=== PATIENT | female | born 1965 | race Caucasian/White ===

== ENCOUNTER → 2020-01-12 | Outpatient (CLI) | payer MEDICAID ==
--- NOTE | 2020-01-15 00:56 | ECWPNPC ---
PATIENT NAME: BHAVNA MCCONNELL : 1965 GENDER: FEMALE VISIT DATE: 01/12/2020 DISCHARGE DATE: 01/12/20 1616 VISIT LOCKED DATE TIME: PHYSICIAN: ARNIE GRAY MD RESOURCE: ARNIE GRAY MD REASON FOR APPOINTMENT 1. LOW BACK PAIN HISTORY OF PRESENT ILLNESS DEPRESSION SCREENING: PHQ-2 (2015 EDITION) LITTLE INTEREST OR PLEASURE IN DOING THINGS?NOT AT ALL FEELING DOWN, DEPRESSED, OR HOPELESS?NOT AT ALL TOTAL SCORE0 29 YEAR OLD FEMALE PATIENT WITH A HISTORY OF CHRONIC LOW BACK AND LEG PAIN. THE PATIENT DESCRIBES HER PAIN ACHING, INTERMITTENT, SHARP, TENDER, THROBBING, SORE, SHOOTING WITH A PAIN SCORE OF 8-10/10 DEPENDING ON PHYSICAL ACTIVITY. THE PATIENT STATES HER PAIN BEGINS IN HER LOW BACK AND RADIATES DOWN THE BACK OF BOTH LEGS TO BOTH ANKLES. THE PATIENT SAYS HER PAIN STARTED TWO YEARS AGO WHEN SHE FELL ON ICY GROUND. THE PATIENT MENTIONS SHE ALSO HAS PAIN FROM KIDNEY STONES. THE PATIENT DENIES UNEXPLAINED WEIGHT LOSS, FEVER, CHILLS, NEW CHANGES IN HER URINARY OR BOWEL CONTROL. GENERAL: - -. FALL RISK SCREENING: SCREENING :TWO OR MORE FALLS WITHOUT INJURY IN THE PAST YEAR PT DID NOT REPORT TO ED, NO INJURY PAIN SCREENING: PATIENT HAS A COMPLAINT OF ACUTE OR CHRONIC PAIN :YES LOCATION OF PAIN:LOW BACK INTENSITY OF PAIN (SCALE OF 1 TO 10):10 WHAT DOES YOUR PAIN FEEL LIKE:ACHING, INTERMITTENT, SHARP, TENDER, THROBBING, SORE, SHOOTING DURATION:MAINLY DURING THE NIGHT PAIN IS INREASED BY: LIFTING, BENDING PAIN IS DECREASED BY: MEDS TREATMENT/MEDICATIONS USED TO MANAGE PAIN:OTC PAIN RELIEVERS NURSING NOTE: - -. PAIN CENTER INTAKE QUESTIONS: DO YOU HAVE A HISTORY OF MRSA? :NO DO YOU TAKE A BLOOD THINNERS? :NO DO YOU HAVE ANY BLEEDING DISORDERS? :NO ANY NEW NUMBNESS OR WEAKNESS IN YOUR LEGS OR ARMS? :NO ANY PACEMAKER,DEFIBRILLATOR, OR DORSAL COLUMN STIMULATOR? :NO DO YOU HAVE ANY RASHES OR OPEN SORES? :YES PT STATES SHE HAS A RASH ON HER ABDOMEN ARE YOU ALLERGIC TO IV DYE? :NO ARE YOU DIABETIC? :YES MANAGED WITH ORAL MEDICATIONS ANY NEW PROBLEMS WITH YOUR MEDICATIONS? :NO HAVE YOU RECEIVED A VACCINE IN THE PAST 30 DAYS? :NO DO YOU PLAN TO RECEIVE A VACCINE IN THE NEXT 21 DAYS? :NO DO YOU NEED ANY PRESCRIPTION? :NO DO YOU TAKE ANY IMMUNOSUPPRESSIVE MEDICATIONS? :NO CURRENT MEDICATIONS TAKING LEVOTHYROXINE SODIUM 50 MCG TABLET 1 TABLET ORALLY ONCE A DAY TAKING PROVENTIL HFA 108 (90 BASE) MCG/ACT AEROSOL SOLUTION 2 PUFFS NEEDED INHALATION EVERY 4 HRS TAKING LIPITOR 10 MG TABLET 1 TABLET ORALLY ONCE A DAY TAKING CETIRIZINE HCL 10 MG TABLET 1 TABLET NEEDED ORALLY ONCE A DAY TAKING ZETIA 10 MG TABLET 1 TABLET ORALLY ONCE A DAY TAKING TRILIPIX 45 MG CAPSULE DELAYED RELEASE 1 CAPSULE ORALLY ONCE A DAY TAKING METFORMIN HCL 500 MG TABLET 1 TABLET WITH MEALS ORALLY TWICE A DAY TAKING BLOOD GLUCOSE TEST STRIP TAKING CELEBREX 200 MG CAPSULE 1 CAPSULE ORALLY ONCE A DAY TAKING LIDODERM 5 % PATCH 1 PATCH TO SKIN REMOVE AFTER 12 HOURS EXTERNALLY ONCE A DAY TAKING NASACORT AQ 55 MCG/ACT AEROSOL SOLUTION 1 PUFF IN EACH NOSTRIL NASALLY ONCE A DAY TAKING ACTOS 30 MG TABLET 1 TABLET ORALLY ONCE A DAY TAKING PRILOSEC 20MG 20MG TABLET ORAL TAKING BENICAR 20 MG TABLET ORALLY TAKING JANUVIA 100 MG TABLET 1 TABLET ORALLY ONCE A DAY TAKING FLEXERIL 10 MG 30 10 MG TABLETS ONE TABLET ORALLY EVERY 8 HOURS PRN PAIN TAKING CIPRO 500 MG TABLET 1 TABLET FOR YOUR PROCEDURE TODAY ORALLY ONCE MEDICATION LIST REVIEWED AND RECONCILED WITH THE PATIENT PAST MEDICAL HISTORY LOW BACK PAIN DEPRESSION CHRONIC RHINITIS ANEMIA GERD HYPERTENSION HYPOTHYROIDISM HYPERLIPIDEMIA TYPE 2 DIABETES ALLERGIES N.K.D.A. SURGICAL HISTORY 1993 FAMILY HISTORY FATHER: ALIVE MOTHER: ALIVE PATERNAL GRAND FATHER: PATERNAL GRAND MOTHER: MATERNAL GRAND FATHER: MATERNAL GRAND MOTHER: 1 SON(S) , 1 DAUGHTER(S) . SOCIAL HISTORY GENERAL: TOBACCO USE ARE YOU A:NEVER SMOKER LATEX QUESTIONNAIRE LATEX ALLERGY : HAVE YOU EVER DEVELOPED ANY TYPE OF REACTION AFTER HANDLING LATEX PRODUCTS SUCH RUBBER GLOVES, CONDOMS, DIAPHRAGMS, BALLOONS, SOCKS, OR UNDERWEAR?NO LATEX ALLERGY : HAVE YOU EVER DEVELOPED ANY TYPE OF REACTION DURING OR AFTER DENTAL APPOINTMENT, VAGINAL/RECTAL EXAMINATION, SURGICAL PROCEDURE, OR ANY OTHER EXPOSURE?NO LATEX RISK : HAVE YOU EVER HAD ANY DIFFICULTY BREATHING OR HIVES AFTER EATING OR HANDLING ANY FRUITS, OR VEGETABLES; SUCH KIWI, BANANAS, STONE FRUITS, OR CHESTNUTSNO LATEX RISK : DO YOU HAVE A PREVIOUS PERSONAL HISTORY OF MORE THAN NINE SURGERIES, SPINA BIFIDA, OR REPEATED CATHERIZATIONS? NO LATEX RISK : ARE YOU FREQUENTLY EXPOSED TO LATEX PRODUCTS IN YOUR OCCUPATION?NO DATE ASKED : 01/12/2020 ALCOHOL SCREENING DID YOU HAVE A DRINK CONTAINING ALCOHOL IN THE PAST YEAR?NO POINTS0 INTERPRETATIONNEGATIVE RECREATIONAL DRUG USE DENIES. CAFFEINE NONE. SEXUAL HX HAD SEX IN THE LAST 12 MONTHS (VAGINAL, ORAL, OR ANAL)?NO HAVE YOU EVER HAD AN STD?NO EPISCOPALIAN NO SIKHISM BELIEFS THAT WOULD IMPACT HEALTH CARE. LANGUAGE SENEGALESE. DOMESTIC VIOLENCE NONE. DIET: REGULAR. EXERCISE: NO REGULAR EXERCISE. MARITAL STATUS: SINGLE. PAIN CLINIC PFS, CLERGY, PUBLIC HEALTH REFERRALS WAS THE PROVIDER NOTIFIED OF ANY PERTINENT INFO?YES HAS THE PATIENT BEEN EDUCATED REGARDING HIS/HER PLAN OF CARE?YES HAS THE PATIENT BEEN EDUCATED REGARDING PAIN, THE RISK FOR PAIN, THE IMPORTANCE OF EFFECTIVE PAIN MANAGEMENT, AND THE PAIN ASSESSMENT PROCESS?YES ADVANCE DIRECTIVE ADVANCE DIRECTIVE DISCUSSED WITH PATIENT:YES PT STATES THAT SHE DOES NOT HAVE HCP AND DECLINES ASSISTANCE WITH PAPERWORK. HOSPITALIZATION/MAJOR DIAGNOSTIC PROCEDURE NO HOSPITALIZATION HISTORY. REVIEW OF SYSTEMS REVIEWED BY: PROVIDER: ARNIE GRAY MD . CONSTITUTIONAL: ANY RECENT FEVER OR ILLNESS NO . ANY CHANGE IN YOUR MEDICAL CONDITION? NO . CHILLS NO . MUSCULOSKELETAL: ANY NEW PATTERNS OF PAIN OR NUMBNESS? NO . SYSTEMIC LUPUS NO . LYME DISEASE NO . GASTROENTEROLOGY: ANY NEW CHANGE IN BOWEL CONTROL? NO . BARRETTS ESOPHAGUS NO . CIRRHOSIS NO . HEPATITIS NO . LIVER FAILURE NO . NO ABDOMINAL PAIN. ACID REFLUX NO . NO ANOREXIA. NO CONSTIPATION. NO CRAMPING. NO NAUSEA. NO RECTAL BLEEDING. NO VOMITING. UNEXPLAINED WEIGHT LOSS NO . GENITOURINARY: ANY NEW CHANGE IN BLADDER CONTROL? NO . IS THERE A CHANCE YOU COULD BE ? NO . NEUROLOGY: HEAD INJURY NO . NEW ONSET DIZZINESS NO . HEADACHE NO . STROKES NO . VERTIGO NO . CARDIOLOGY: ANGINA NO . HEART ATTACK NO . HEART SURGERY NO . CONGESTIVE HEART FAILURE/FLUID OVERLOAD NO . CHEST PAIN NO . HIGH BLOOD PRESSURE NO . IRREGULAR HEART BEAT NO . RESPIRATORY: SLEEP APNEA NO . ASTHMA NO . SHORTNESS OF BREATH ON EXERTION NO . COUGH NO . WHEEZING NO . ENDOCRINOLOGY: ADRENAL GLAND DISORDER NO . THYROID DISORDER NO . VITAL SIGNS WT 269.2 LBS, HT 64.5 IN, BMI 45.49 INDEX, BP 142/65 MM HG, HR 79 /MIN, RR 18 /MIN, TEMP 97.9 F, OXYGEN SAT % 99%, SAFE IN ENV? (Y/N) Y, NA INITIALS TL 1439, REVIEWED BY: NELL. EXAMINATION GENERAL: PATIENT IS ALERT O X 3 AND COOPERATIVE. LUNGS CLEAR, TO AUSCULTATION. HEART: NO MURMURS OR GALLOPS; FACIAL CRANIAL NERVES ARE GROSSLY NORMAL. GOOD SYMMETRY OF FACIAL MUSCLE MOVEMENT. NORMAL VISUAL MAC. TENDERNESS OVER THE PARASPINAL MUSCLE GROUP OF THE LOW BACK. PATIENT CAN BEND AND EXTEND BACK. ASSESSMENTS MYALGIA, OTHER SITE - M79.18 (PRIMARY) LUMBAGO WITH SCIATICA, LEFT SIDE - M54.42 LUMBAGO WITH SCIATICA, RIGHT SIDE - M54.41 OTHER CHRONIC PAIN - G89.29 TREATMENT MYALGIA, OTHER SITE CLINICAL NOTES: WE DISCUSSED SEVERAL ISSUES WITH MS. MCCONNELL' PAIN MANAGEMENT CASE. I AM ORDERING PHYSICAL THERAPY FOR THE PATIENT TO HELP WITH LOW BACK PAIN. I AM ALSO ORDERING A LUMBAR SPINE X-RAY TO CHECK FOR PATHOLOGY IN THE LOWER BACK. THE PATIENT WILL FOLLOW UP WITH ME IN 6 WEEKS TO REVIEW THE X-RAY AND DISCUSS FURTHER OPTIONS TO PROCEED WITH. INSTRUCTIONS WERE GIVEN, QUESTIONS WERE ANSWERED, PATIENT REPORTS UNDERSTANDING AND AGREES WITH THE PLAN. I, JENNIFER BRUNNER, DOCUMENTED THE ABOVE INFORMATION ACTING A SCRIBE FOR DR. GRAY. I HAVE REVIEWED THE ABOVE DOCUMENT, WRITTEN BY JENNIFER SIDHU AND I VERIFY THAT IT IS ACCURATE. DEAR RADHA FELDMAN, [facility]-: THANK YOU FOR YOUR KIND REFERRAL OF BHAVNA MCCONNELL. IF YOU WANT TO DISCUSS HER CASE WITH ME PLEASE CALL ME AT THE PAIN CENTER AT [phone]. SINCERELY, ARNIE GRAY MD PAIN MEDICINE . PROCEDURE CODES FA211 ESTABILISHED PATIENT [facility] FACILITY CHARGE [id number] CURRENT MEDS W/DOSAGES DOCUMENTED G8730 PAIN ASSESS POS TOOL F/U PLAN DOC DISPOSITION & COMMUNICATION FOLLOW UP 6 WEEKS (REASON: ORDERING PT AND LS XRAY; F/UP 6 WEEKS ) ELECTRONICALLY SIGNED BY ARNIE GRAY MD, MD ON 01/14/2020 AT 11:12 AM EDT DISCLAIMER : THIS IS A VISIT SUMMARY EXTRACTED FROM THE [employer] CHART. IT IS NOT A COPY OF THE [employer] PROGRESS NOTE. MTDD
== END ==
LOC: M PAIN 14:30
PROVIDERS: ATTEND Anesthesiology
DX: M79.18 Myalgia, other site (principal); M54.42 Lumbago with sciatica, left side; M54.41 Lumbago with sciatica, right side; G89.29 Other chronic pain

== ENCOUNTER 2023-02-13 10:46 | Inpatient (IN) | payer MEDICAID ==
[~2023-02-13] VITALS: Ht 167.6 cm; Wt 98.0 kg
[2023-02-13 11:45] LABS: HEMATOCRIT 41.6 % (36.0-47.0); HEMOGLOBIN 12.8 g/dl (12.0-15.5); MEAN CORPUSCULAR HGB CONC 30.8 g/dl (32.0-36.5); MEAN CORPUSCULAR VOLUME 81.4 fl (80.0-96.0); PLATELET COUNT, AUTOMATED 266 10^3/uL (150-450); RED BLOOD COUNT 5.11 10^6/uL (4.00-5.40); WHITE BLOOD COUNT 5.1 10^3/uL (4.0-10.0)
[2023-02-13 12:00] LABS: AMPHETAMINES LEVEL URINE NEGATIVE (NEGATIVE); BARBITURATES URINE NEGATIVE (NEGATIVE); BENZODIAZEPINES URINE NEGATIVE (NEGATIVE); CANNABINOIDS URINE NEGATIVE (NEGATIVE); COCAINE METABOLITE URINE NEGATIVE (NEGATIVE); METHADONE URINE NEGATIVE (NEGATIVE); OPIATES URINE NEGATIVE (NEGATIVE); PHENCYCLIDINE URINE NEGATIVE (NEGATIVE)
[2023-02-13 12:03] LABS: ETHYL ALCOHOL (ETHANOL) 0.003 % (0.000-0.010)
[2023-02-13 12:04] LABS: ACETAMINOPHEN LEVEL < 2.0 UG/ML (10.0-20.0)
[2023-02-13 12:05] LABS: SALICYLATE LEVEL < 3.0 MG/DL (<30)
[2023-02-13 12:12] LABS: ALBUMIN 3.8 G/DL (3.2-5.2); ALKALINE PHOSPHATASE 112 U/L (46-116); ALT/SGPT 34 U/L (7.0-40); AST/SGOT 85 U/L (<34); BILIRUBIN,DIRECT 0.4 MG/DL (<0.4); BILIRUBIN,TOTAL 1.2 MG/DL (0.3-1.2); BLOOD UREA NITROGEN < 5 MG/DL (9-23); CARBON DIOXIDE LEVEL 26 MMOL/L (20-31); CHLORIDE LEVEL 105 MMOL/L (98-107); CREATININE FOR GFR 0.59 MG/DL (0.55-1.30); GLOMERULAR FILTRATION RATE > 60.0 (>45); GLUCOSE, FASTING 167 MG/DL (74-106); POTASSIUM SERUM 3.9 MMOL/L (3.5-5.1); SODIUM LEVEL 134 MMOL/L (136-145); THYROID STIMULATING HORMONE 3.635 uIU/ML (0.55-4.78); TOTAL PROTEIN 6.9 G/DL (5.7-8.2)
[2023-02-13] MEDS ORDERED: diphenhydrAMINE 25MG CAP PO PRN (16:35)
[2023-02-13] MEDS ORDERED: MOM 30ML SUSPENSION UDC PO PRN (16:35)
[2023-02-13] MEDS ORDERED: MAALOX 30 ML SUSP *UDC PO PRN (16:35)
[2023-02-13] MEDS ORDERED: IBUPROFEN 400MG TAB PO PRN (16:35)
[2023-02-13] MEDS ORDERED: MED REC IN PROGRESS XX SCH (17:25)
[2023-02-13] MEDS ORDERED: LEVO50TA5 PO (17:43)
[2023-02-13] MEDS ORDERED: CETI-24 PO (17:43)
[2023-02-13] MEDS ORDERED: ATOR1TAB19 PO (17:43)
[2023-02-13] MEDS ORDERED: CITA10TA7 PO (17:43)
[2023-02-13] MEDS ORDERED: HOME MED LIST COMPLETE! XX SCH (17:50)
[2023-02-14] MEDS: traZODone 50 MG TAB PO PRN (00:14)
[2023-02-14] MEDS ORDERED: CitaloPRAM (CeleXA) 10 MG TABLET PO SCH (09:00)
[2023-02-14] MEDS: CETIRIZINE (ZyrTEC) 10 MG TAB PO SCH (10:36)
[2023-02-14] MEDS: FLUoxetine 20MG CAP PO SCH (10:36)
[2023-02-14] MEDS: LEVOTHYROXINE 50MCG TABLET (0.05MG) PO SCH (10:36)
[2023-02-14] MEDS: QUEtiapine FUMARATE 25 MG TAB PO PRN (11:40)
[2023-02-14 18:55] VITALS: BP 122/73; TEMP 97.6
[2023-02-14] MEDS: QUEtiapine FUMARATE 50MG TAB PO SCH (20:52)
[2023-02-14] MEDS: ATORVASTATIN 10 MG TAB PO SCH (20:52)
[2023-02-15] MEDS: LEVOTHYROXINE 50MCG TABLET (0.05MG) PO SCH (05:42)
[2023-02-15 05:47] VITALS: BP 103/67; TEMP 97.4; O2SAT 98
[2023-02-15] MEDS: CETIRIZINE (ZyrTEC) 10 MG TAB PO SCH (08:46)
[2023-02-15] MEDS: FLUoxetine 20MG CAP PO SCH (08:46)
[2023-02-15 18:00] VITALS: BP 140/76; TEMP 97.1; O2SAT 100
[2023-02-15] MEDS: ATORVASTATIN 10 MG TAB PO SCH (21:54)
[2023-02-15] MEDS: QUEtiapine FUMARATE 50MG TAB PO SCH (21:55)
[2023-02-16] MEDS: LEVOTHYROXINE 50MCG TABLET (0.05MG) PO SCH (05:49)
[2023-02-16 06:22] VITALS: BP 115/67; TEMP 98.6; O2SAT 97
[2023-02-16] MEDS: FLUoxetine 20MG CAP PO SCH (08:43)
[2023-02-16] MEDS: CETIRIZINE (ZyrTEC) 10 MG TAB PO SCH (08:43)
[2023-02-16 18:26] VITALS: BP 149/80; TEMP 96.6
[2023-02-16] MEDS: QUEtiapine FUMARATE 50MG TAB PO SCH (20:35)
[2023-02-16] MEDS: traZODone 50 MG TAB PO PRN (20:35)
[2023-02-16] MEDS: ATORVASTATIN 10 MG TAB PO SCH (20:35)
[2023-02-17] MEDS: LEVOTHYROXINE 50MCG TABLET (0.05MG) PO SCH (05:34)
[2023-02-17 06:03] VITALS: BP 136/78; TEMP 98; O2SAT 100
[2023-02-17 07:23] LABS: CHOLESTEROL RISK RATIO 2.39 (<5); HDL CHOLESTEROL 58.1 MG/DL (>40); LDL CHOLESTEROL 50.5 MG/DL (<100); NON-HDL-C 80.9 MG/DL
[2023-02-17] MEDS: CETIRIZINE (ZyrTEC) 10 MG TAB PO SCH (09:37)
[2023-02-17] MEDS: FLUoxetine 20MG CAP PO SCH (09:37)
[2023-02-17 16:12] VITALS: BP 138/84; TEMP 98.9; O2SAT 98
[2023-02-17] MEDS: QUEtiapine FUMARATE 25 MG TAB PO PRN (17:12)
[2023-02-17] MEDS: traZODone 50 MG TAB PO PRN (20:07)
[2023-02-17] MEDS: ATORVASTATIN 10 MG TAB PO SCH (20:07)
[2023-02-17] MEDS: QUEtiapine FUMARATE 50MG TAB PO SCH (20:07)
[2023-02-18] MEDS: LEVOTHYROXINE 50MCG TABLET (0.05MG) PO SCH (06:00)
[2023-02-18 06:31] VITALS: BP 117/56; TEMP 97.4; O2SAT 96
[2023-02-18] MEDS: FLUoxetine 20MG CAP PO SCH (09:34)
[2023-02-18] MEDS: CETIRIZINE (ZyrTEC) 10 MG TAB PO SCH (09:35)
[2023-02-18 17:29] VITALS: BP 125/73; TEMP 97.7; O2SAT 97
[2023-02-18] MEDS: traZODone 50 MG TAB PO PRN (20:33)
[2023-02-18] MEDS: QUEtiapine FUMARATE 50MG TAB PO SCH (20:33)
[2023-02-18] MEDS: ATORVASTATIN 10 MG TAB PO SCH (20:33)
[2023-02-19] MEDS: LEVOTHYROXINE 50MCG TABLET (0.05MG) PO SCH (05:53)
[2023-02-19 06:09] VITALS: BP 126/60; TEMP 97; O2SAT 98
[2023-02-19] MEDS: FLUoxetine 20MG CAP PO SCH (09:33)
[2023-02-19] MEDS: CETIRIZINE (ZyrTEC) 10 MG TAB PO SCH (09:33)
[2023-02-19 17:08] VITALS: BP 148/84; TEMP 96.6; O2SAT 99
[2023-02-19] MEDS: traZODone 50 MG TAB PO PRN (20:02)
[2023-02-19] MEDS: ATORVASTATIN 10 MG TAB PO SCH (20:03)
[2023-02-19] MEDS: QUEtiapine FUMARATE 50MG TAB PO SCH (20:03)
[2023-02-20] MEDS: LEVOTHYROXINE 50MCG TABLET (0.05MG) PO SCH (05:35)
[2023-02-20 06:26] VITALS: BP 113/55; TEMP 97.4; O2SAT 95
[2023-02-20] MEDS: FLUoxetine 20MG CAP PO SCH (08:13)
[2023-02-20] MEDS: CETIRIZINE (ZyrTEC) 10 MG TAB PO SCH (08:13)
[2023-02-20 15:25] VITALS: BP 161/77; TEMP 96.7
[2023-02-20 18:37] VITALS: BP 161/70; TEMP 96.7; O2SAT 100
[2023-02-20] MEDS: ATORVASTATIN 10 MG TAB PO SCH (20:09)
[2023-02-20] MEDS: traZODone 50 MG TAB PO PRN (20:09)
[2023-02-20] MEDS: QUEtiapine FUMARATE 50MG TAB PO SCH (20:09)
[2023-02-20] MEDS: ACETAMINOPHEN TAB 650MG DOSE (2X325MG) PO PRN (20:18)
[2023-02-21] MEDS: LEVOTHYROXINE 50MCG TABLET (0.05MG) PO SCH (05:32)
[2023-02-21 06:01] VITALS: BP 123/64; TEMP 97.7; O2SAT 99
[2023-02-21] MEDS: CETIRIZINE (ZyrTEC) 10 MG TAB PO SCH (08:42)
[2023-02-21] MEDS: FLUoxetine 20MG CAP PO SCH (08:42)
[2023-02-21 17:39] VITALS: BP 178/84; TEMP 97.8; O2SAT 99
[2023-02-21] MEDS: QUEtiapine FUMARATE 50MG TAB PO SCH (20:29)
[2023-02-21] MEDS: ATORVASTATIN 10 MG TAB PO SCH (20:29)
[2023-02-21] MEDS: traZODone 50 MG TAB PO PRN (20:29)
[2023-02-22] MEDS: LEVOTHYROXINE 50MCG TABLET (0.05MG) PO SCH (06:03)
[2023-02-22 06:42] VITALS: BP 124/70; TEMP 97.8; O2SAT 95
[2023-02-22] MEDS: CETIRIZINE (ZyrTEC) 10 MG TAB PO SCH (08:30)
[2023-02-22] MEDS: FLUoxetine 20MG CAP PO SCH (08:30)
[2023-02-22 16:52] VITALS: BP 130/66; TEMP 96.6; O2SAT 100
[2023-02-22] MEDS: ATORVASTATIN 10 MG TAB PO SCH (20:34)
[2023-02-22] MEDS: QUEtiapine FUMARATE 50MG TAB PO SCH (20:34)
[2023-02-23] MEDS: LEVOTHYROXINE 50MCG TABLET (0.05MG) PO SCH (06:05)
[2023-02-23 06:49] VITALS: BP 125/73; TEMP 98.1; O2SAT 96
[2023-02-23] MEDS: CETIRIZINE (ZyrTEC) 10 MG TAB PO SCH (08:05)
[2023-02-23] MEDS: FLUoxetine 20MG CAP PO SCH (08:05)
[2023-02-23 18:21] VITALS: BP 150/81; TEMP 96.9; O2SAT 96
[2023-02-23] MEDS: traZODone 50 MG TAB PO PRN (20:26)
[2023-02-23] MEDS: QUEtiapine FUMARATE 50MG TAB PO SCH (20:26)
[2023-02-23] MEDS: ATORVASTATIN 10 MG TAB PO SCH (20:26)
[2023-02-23] MEDS: ACETAMINOPHEN TAB 650MG DOSE (2X325MG) PO PRN (20:26)
[2023-02-24] MEDS: LEVOTHYROXINE 50MCG TABLET (0.05MG) PO SCH (05:38)
[2023-02-24 06:44] VITALS: BP 124/71; TEMP 98.1; O2SAT 97
[2023-02-24] MEDS: FLUoxetine 20MG CAP PO SCH (08:08)
[2023-02-24] MEDS: CETIRIZINE (ZyrTEC) 10 MG TAB PO SCH (08:08)
[2023-02-24 18:37] VITALS: BP 140/76; TEMP 96.8; O2SAT 99
[2023-02-24] MEDS: traZODone 50 MG TAB PO PRN (20:06)
[2023-02-24] MEDS: QUEtiapine FUMARATE 50MG TAB PO SCH (20:06)
[2023-02-24] MEDS: ATORVASTATIN 10 MG TAB PO SCH (20:06)
[2023-02-25] MEDS: LEVOTHYROXINE 50MCG TABLET (0.05MG) PO SCH (05:31)
[2023-02-25 06:23] VITALS: BP 133/71; TEMP 98.7; O2SAT 97
[2023-02-25] MEDS: FLUoxetine 20MG CAP PO SCH (08:05)
[2023-02-25] MEDS: CETIRIZINE (ZyrTEC) 10 MG TAB PO SCH (08:05)
[2023-02-25 18:55] VITALS: BP 137/73; TEMP 97.6
[2023-02-25] MEDS: traZODone 50 MG TAB PO PRN (20:06)
[2023-02-25] MEDS: ATORVASTATIN 10 MG TAB PO SCH (20:06)
[2023-02-25] MEDS: QUEtiapine FUMARATE 50MG TAB PO SCH (20:06)
[2023-02-26] MEDS: LEVOTHYROXINE 50MCG TABLET (0.05MG) PO SCH (05:53)
[2023-02-26 06:15] VITALS: BP 128/59; TEMP 97; O2SAT 97
[2023-02-26] MEDS: FLUoxetine 20MG CAP PO SCH (10:53)
[2023-02-26] MEDS: CETIRIZINE (ZyrTEC) 10 MG TAB PO SCH (10:53)
[2023-02-26] MEDS: ACETAMINOPHEN TAB 650MG DOSE (2X325MG) PO PRN ×2 (13:58→21:56)
[2023-02-26 18:46] VITALS: BP 135/86; TEMP 98; O2SAT 98
[2023-02-26] MEDS: ATORVASTATIN 10 MG TAB PO SCH (20:10)
[2023-02-26] MEDS: traZODone 50 MG TAB PO PRN (20:10)
[2023-02-26] MEDS: QUEtiapine FUMARATE 50MG TAB PO SCH (20:10)
[2023-02-27] MEDS: LEVOTHYROXINE 50MCG TABLET (0.05MG) PO SCH (06:07)
[2023-02-27 06:45] VITALS: BP 128/64; TEMP 97.3; O2SAT 98
[2023-02-27] MEDS: FLUoxetine 20MG CAP PO SCH (08:19)
[2023-02-27] MEDS: CETIRIZINE (ZyrTEC) 10 MG TAB PO SCH (08:19)
[2023-02-27] MEDS: ACETAMINOPHEN TAB 650MG DOSE (2X325MG) PO PRN (11:34)
[2023-02-27 18:25] VITALS: BP 140/76; TEMP 97.8
[2023-02-27] MEDS: QUEtiapine FUMARATE 50MG TAB PO SCH (20:01)
[2023-02-27] MEDS: ATORVASTATIN 10 MG TAB PO SCH (20:01)
[2023-02-27] MEDS: traZODone 50 MG TAB PO PRN (20:01)
[2023-02-28] MEDS: LEVOTHYROXINE 50MCG TABLET (0.05MG) PO SCH (06:02)
[2023-02-28 06:38] VITALS: BP 143/70; TEMP 96.5; O2SAT 97
[2023-02-28] MEDS: FLUoxetine 20MG CAP PO SCH (09:15)
[2023-02-28] MEDS: CETIRIZINE (ZyrTEC) 10 MG TAB PO SCH (09:15)
[2023-02-28] MEDS ORDERED: ABIL1TAB11 PO (12:04)
[2023-02-28] MEDS ORDERED: FLUO20CA22 PO (12:04)
[2023-02-28] MEDS ORDERED: TRAZ-252 PO (12:04)
[2023-02-28] MEDS ORDERED: QUET50TA4 PO (12:04)
== END 2023-02-28 15:24 | disposition home or self-care (01) | DRG 758 ==
LOC: M ED 10:46 → M ED INP 16:34 → M PSY 17:46
PROVIDERS: ADMIT Student in an Organized Health Care Education/Training Program; ATTEND Student in an Organized Health Care Education/Training Program
DX: F63.9 Impulse disorder, unspecified (principal); F70 Mild intellectual disabilities; F43.20 Adjustment disorder, unspecified; R41.9 Unspecified symptoms and signs involving cognitive functions and awareness; Z88.8 Allergy status to other drugs, medicaments and biological substances; Z79.899 Other long term (current) drug therapy; E78.5 Hyperlipidemia, unspecified; G80.9 Cerebral palsy, unspecified; E03.9 Hypothyroidism, unspecified; R45.851 Suicidal ideations; R45.850 Homicidal ideations

== ENCOUNTER 2023-03-27 13:15 | Emergency (ER) | payer MEDICAID ==
[~2023-03-27] VITALS: Ht 162.6 cm; Wt 102.2 kg
[~2023-03-27 13:15] MED LIST: ABIL1TAB11 PO; ATOR1TAB19 PO; CETI-24 PO; CITA10TA7 PO; FLUO20CA22 PO; LEVO50TA5 PO; QUET50TA4 PO; TRAZ-252 PO
[2023-03-27 13:17] VITALS: TEMP 98
[2023-03-27 14:17] LABS: HEMATOCRIT 38.5 % (36.0-47.0); HEMOGLOBIN 11.8 g/dl (12.0-15.5); MEAN CORPUSCULAR HEMOGLOBIN 24.7 pg (27.0-33.0); MEAN CORPUSCULAR HGB CONC 30.6 g/dl (32.0-36.5); MEAN CORPUSCULAR VOLUME 80.7 fl (80.0-96.0); PLATELET COUNT, AUTOMATED 216 10^3/uL (150-450); RED BLOOD COUNT 4.77 10^6/uL (4.00-5.40); WHITE BLOOD COUNT 6.9 10^3/uL (4.0-10.0)
[2023-03-27 14:41] LABS: AMPHETAMINES LEVEL URINE NEGATIVE (NEGATIVE); BARBITURATES URINE NEGATIVE (NEGATIVE); COCAINE METABOLITE URINE NEGATIVE (NEGATIVE)
[2023-03-27 14:42] LABS: BENZODIAZEPINES URINE NEGATIVE (NEGATIVE); CANNABINOIDS URINE NEGATIVE (NEGATIVE); METHADONE URINE NEGATIVE (NEGATIVE); OPIATES URINE NEGATIVE (NEGATIVE); PHENCYCLIDINE URINE NEGATIVE (NEGATIVE)
[2023-03-27 14:44] LABS: ETHYL ALCOHOL (ETHANOL) < 0.003 % (0.000-0.010); HCG, SERUM QUALITATIVE NEGATIVE (NEGATIVE)
[2023-03-27 14:45] LABS: ACETAMINOPHEN LEVEL < 2.0 UG/ML (10.0-20.0)
[2023-03-27 14:46] LABS: ALBUMIN 3.4 G/DL (3.2-5.2); ALKALINE PHOSPHATASE 147 U/L (46-116); ALT/SGPT 27 U/L (7.0-40); AST/SGOT 42 U/L (<34); BILIRUBIN,DIRECT 0.2 MG/DL (<0.4); BILIRUBIN,TOTAL 0.5 MG/DL (0.3-1.2); BLOOD UREA NITROGEN 7 MG/DL (9-23); CALCIUM LEVEL 8.8 MG/DL (8.3-10.6); CARBON DIOXIDE LEVEL 28 MMOL/L (20-31); CHLORIDE LEVEL 102 MMOL/L (98-107); CREATININE FOR GFR 0.55 MG/DL (0.55-1.30); GLOMERULAR FILTRATION RATE > 60.0 (>45); GLUCOSE, FASTING 284 MG/DL (74-106); POTASSIUM SERUM 4.1 MMOL/L (3.5-5.1); SALICYLATE LEVEL < 3.0 MG/DL (<30); SODIUM LEVEL 138 MMOL/L (136-145); TOTAL PROTEIN 6.5 G/DL (5.7-8.2)
[2023-03-27 14:47] LABS: THYROID STIMULATING HORMONE 2.112 uIU/ML (0.55-4.78)
[2023-03-27] MEDS ORDERED: MED REC IN PROGRESS XX SCH (16:30)
[2023-03-27] MEDS ORDERED: GLIP10TA6 PO (17:03)
[2023-03-27] MEDS ORDERED: CITA10TA7 PO (17:03)
[2023-03-27] MEDS ORDERED: ASPI-226 PO (17:03)
[2023-03-27] MEDS ORDERED: HOME MED LIST COMPLETE! XX SCH (17:05)
[2023-03-27 20:39] VITALS: BP 187/84; O2SAT 99
== END 2023-03-27 20:51 | disposition home or self-care (01) ==
LOC: M ED 13:15
DX: F43.20 Adjustment disorder, unspecified (principal); F79 Unspecified intellectual disabilities; G80.9 Cerebral palsy, unspecified; E03.9 Hypothyroidism, unspecified; E78.5 Hyperlipidemia, unspecified; Z88.8 Allergy status to other drugs, medicaments and biological substances; Z79.899 Other long term (current) drug therapy

== ENCOUNTER → 2024-03-11 | Outpatient (REF) | payer MEDICAID ==
[~2024-03-11] MED LIST changes: +ASPI-226 PO; +FLUO-365 PO; -FLUO20CA22 PO; +GLIP10TA6 PO
[2024-03-12 15:42] LABS: ANA PATTERN Nuclear, Homogeneous (NEGATIVE); ANA SCREEN, IFA POSITIVE (NEGATIVE); ANA TITER 1:40 titer (<1:40)
== END ==
LOC: M SFHCRHEU 10:25
PROVIDERS: ATTEND Internal Medicine
DX: R76.8 Other specified abnormal immunological findings in serum (principal); E55.9 Vitamin D deficiency, unspecified

== ENCOUNTER → 2024-05-13 | Day surgery (SDC) | payer MEDICAID ==
[~2024-05-13] VITALS: Ht 167.6 cm; Wt 93.4 kg
[~2024-05-13] MED LIST changes: +CLONI1TA PO; +CYAN500T14 PO; +ERGO500029 PO; +FENO45CA3 PO; +FERR325T3 PO; +FLON1SPR; +LIDOCAINE 2% 100MG/5ML SDV (FOR ANES.) As Ordered ONE; +LOSA50TA28 PO; +METF500T13 PO; +NS 1,000 ML IV ONE; +OMEP1CAP73 PO; +SIMETHICONE 40MG/0.6ML DROPS 30ML As Ordered ONE; +TRAZ-186 PO; +VITA-243 PO; +propofoL 200 MG/20 ML VIAL As Ordered ONE
[2024-05-13 08:49] VITALS: TEMP 98.1
[2024-05-13 09:09] VITALS: BP 136/65; O2SAT 98
== END | disposition home or self-care (01) ==
LOC: M OPP 06:57
PROVIDERS: ATTEND Surgery
DX: Z12.11 Encounter for screening for malignant neoplasm of colon (principal); K57.30 Diverticulosis of large intestine without perforation or abscess without bleeding; K21.9 Gastro-esophageal reflux disease without esophagitis; Z80.0 Family history of malignant neoplasm of digestive organs; E11.9 Type 2 diabetes mellitus without complications; I10 Essential (primary) hypertension; E03.9 Hypothyroidism, unspecified; E78.00 Pure hypercholesterolemia, unspecified; Z79.899 Other long term (current) drug therapy; Z79.82 Long term (current) use of aspirin; Z79.84 Long term (current) use of oral hypoglycemic drugs; F70 Mild intellectual disabilities; Z91.09 Other allergy status, other than to drugs and biological substances; Z88.8 Allergy status to other drugs, medicaments and biological substances; Z90.89 Acquired absence of other organs

== ENCOUNTER → 2025-03-11 | Outpatient (REF) | payer MEDICAID ==
[~2025-03-11] MED LIST changes: +GLIP10TA15 PO; -GLIP10TA6 PO; -LIDOCAINE 2% 100MG/5ML SDV (FOR ANES.) As Ordered ONE; -NS 1,000 ML IV ONE; -SIMETHICONE 40MG/0.6ML DROPS 30ML As Ordered ONE; -propofoL 200 MG/20 ML VIAL As Ordered ONE
== END ==
LOC: M SFHCRHEU 11:38
PROVIDERS: ATTEND Internal Medicine
DX: E55.9 Vitamin D deficiency, unspecified (principal)